=== PATIENT | female | born 2000 | race Hispanic/Latino ===

== ENCOUNTER 2025-03-21 15:06 | Emergency (ER) | payer OTHER ==
[2025-03-21] MEDS ORDERED: Lidocaine Viscous Sol 2% 15 ml UD Cup ONE (15:14)
[2025-03-21] MEDS ORDERED: Bacitracin 1 PK ONE ×2 (15:34→15:43)
== END 2025-03-21 16:06 | disposition home or self-care (01) ==
LOC: NAV ERS 15:06
DX: S00.511A Abrasion of lip, initial encounter (principal); Z23 Encounter for immunization; W23.0XXA Caught, crushed, jammed, or pinched between moving objects, initial encounter
CPT/HCPCS: 90715; 99283